=== PATIENT | male | born 1995 | race Caucasian/White ===

== ENCOUNTER 2016-07-02 22:13 | Emergency (ER) | payer OTHER ==
[~2016-07-02] VITALS: Ht 172.7 cm; Wt 48.9 kg
[2016-07-02 22:19] VITALS: Ht 172.7 cm; Wt 48.9 kg
[2016-07-02] MEDS ORDERED: ACETAMINOPHEN 500 MG TAB PO STA (22:25)
[2016-07-02] MEDS ORDERED: IBUPROFEN 600 MG TAB PO STA (22:38)
[2016-07-02] MEDS ORDERED: LORA-554 PO (22:49)
[2016-07-03 00:07] VITALS: BP 110/55; PULSE 109; TEMP 37.4; O2SAT 99
--- NOTE | 2016-07-03 05:11 | EMERGENCY ROOM VISIT NOTE ---
History First contact with patient: 22:25 Chief Complaint: FEVER Stated Complaint: FEVER,FATIGUE,BODY ACHE,COUGHING History of Present Illness The patient is a 21 year old male who presents to the Emergency Room with complaints of Fever, chills, myalgias, arthralgias for the past day. Patient denies chest pain, dyspnea, abdominal pain, neck stiffness, sore throat, abdominal pain, vomiting, diarrhea. He is tolerating by mouth fluids but has a decreased appetite. No flu shot. No cold medicines today. Review of Systems See HPI for pertinent positives & negatives. A total of 10 systems reviewed and were otherwise negative. Past Medical/Surgical History None Social History Smoking Status: Current Every Day Smoker Alcohol Use: none Drug Use: none Marital Status: single Occupation Status: [employer] student Current/Historical Medications Scheduled PRN Loratadine (Allergy Relief), 10 MG PO DAILY PRN for ALLERGIC REACTION Allergies Coded Allergies: No Known Allergies (Unverified , 07/02/16) Physical Exam Vital Signs Date Time Temp Pulse Resp B/P Pulse Ox O2 Delivery O2 Flow Rate FiO2 07/03/16 00:07 37.4 109 20 110/55 99 07/02/16 22:19 39.0 147 18 121/66 96 Room Air Pain Rating (0-10): 0 Physical Exam VITALS: Vitals are noted on the nurse's note and reviewed by myself. Vital signs febrile GENERAL: Pleasant male, in no acute distress, nondiaphoretic, well-developed well-nourished. SKIN: The skin was without rashes, erythema, edema, or bruising. There is no tenting of the skin. Capillary reflex less than 2 seconds. HEAD: Normocephalic atraumatic. EARS: External auditory canals clear, tympanic membranes pearly shabazz without erythema or effusion bilaterally. EYES: Pupils equal round and reactive to light and accommodation. Conjunctivae without injection, sclerae without icterus. Extraocular movements intact. NOSE: Patent, turbinates without inflammation or discharge. No sinus tenderness. MOUTH: Mucous membranes mildly dry Pharynx without erythema or exudate. Uvula midline. Airway patent. Tongue does not deviate. NECK: Supple without nuchal rigidity. No lymphadenopathy. No thyromegaly. Cervical spine is nontender. No JVD. No meningeal signs HEART: Regular rate and rhythm without murmurs gallops or rubs. LUNGS: Clear to auscultation bilaterally without wheezes, rales or rhonchi. No dullness to percussion. No retractions or accessory muscle use. ABDOMEN: Positive bowel sounds x 4. Normal tympanic percussion. Soft, nontender, without masses or organomegaly. Sanchez sign negative. No guarding or rebound tenderness. MUSCULOSKELETAL: No muscle atrophy, erythema, or edema noted. NEURO: Patient was alert and oriented to person place and time. Normal sensation to light and sharp touch. No focal neurological deficits. Medical Decision & Procedures Laboratory Results Test 07/02/16 22:32 Influenza Type A Antigen Neg for Influ A (NEG) Influenza Type B Antigen Neg for Influ B (NEG) Medications Administered Medications (Trade) Dose Ordered Sig/Johnny Route Start Time Stop Time Status Last Admin Dose Admin Acetaminophen (Tylenol Tab) 1,000 mg NOW STAT PO 07/02/16 22:25 07/02/16 22:27 DC 07/02/16 22:35 1,000 MG Ibuprofen (Motrin Tab) 600 mg NOW STAT PO 07/02/16 22:38 07/02/16 22:39 DC 07/02/16 22:54 600 MG ED Course Prior records/ancillary studies reviewed. Triage Nursing notes reviewed. The patient's history was concerning for fever. Differential diagnosis: Etiologies such as viral syndrome, otitis, pharyngitis, pneumonia, influenza, meningitis, urinary tract infection, sepsis, bacteremia, as well as others were entertained. Physical examination: Patient was alert, interactive with no meningeal signs ER treatment provided: Tylenol, Motrin, fluids On reassessment the patient felt better. Diagnostics interpreted by me: The labs revealed negative influenza This appears to be consistent with influenza. This could be a false negative. Patient exam and history seems consistent with influenza. Patient no signs of meningitis. He was well-appearing. He felt much better to be medicated as above. He was advised to take all medicines as directed and to follow-up health services in a few days here in the ER sooner for high fevers, neck stiffness, vomiting, worsening signs or symptoms or as needed. By the evaluation outlined above emergent etiologies such as otitis, pharyngitis, pneumonia, meningitis, urinary tract infection, sepsis, bacteremia, as well as others were deemed relatively unlikely. The pt informed about the findings as listed above. All questions were answered and pleased with the treatment. Return instructions were outlined and the patient was discharged in stable condition. Referral: The patient was referred back to their primary care physician for follow-up in 2 to 3 days for a recheck of the current condition. Medical Decision As above Impression Primary Impression: Influenza Departure Information Dispostion Home / Self-Care Condition GOOD Forms HOME CARE DOCUMENTATION FORM, School Instructions, Return To School: 3 days IMPORTANT VISIT INFORMATION Patient Instructions Fever - [facility], [facility] Additional Instructions Acetaminophen(Tylenol) may be used for fever or pain. Use 1000mg every six hours as needed. Avoid using more than 3000mg in a 24 hour period. (AND/OR) Ibuprofen(Motrin, Advil) may be used for fever or pain. Use 600mg every six hours as needed. Take with food. Avoid using more than 2400mg in a 24 hour period. Do not use 2400mg per day for more than three consecutive days without physician direction. Prolonged inappropriate use can lead to stomach upset or ulcers. Afrin nasal spray: 2-3 sprays to each nostril twice daily as needed for congestion. Do not use for more than 3-4 days because it can lead to worsening rebound congestion. Pseudoephedrine(Sudaphed): 30-60mg every 6 hours as needed for nasal congestion. Do not take this with other stimulant products or supplements. Rest and drink plenty of fluids. Controlling your fever with Tylenol and Ibuprofen as above will make you feel better. Wash your hands after nose blowing, sneezing, or coughing. Most germs are spread through contact, therefore improper hygiene may result in your close contacts and loved ones becoming ill just like you. Continue current medications. Return to the ER for severe headache, neck stiffness, chest pain, difficulty breathing, fevers, vomiting, worsening of your condition, or as needed. Follow up with your primary physician this week for a recheck of your current condition. School Instructions Return To School: 3 days
== END 2016-07-03 00:09 | disposition home or self-care (01) ==
LOC: C.EDB 22:15 → C.EDC 07-03 00:09
DX: J11.1 Influenza due to unidentified influenza virus with other respiratory manifestations (principal); F17.200 Nicotine dependence, unspecified, uncomplicated

== ENCOUNTER → 2016-07-09 | Outpatient (CLI) | payer OTHER ==
[~2016-07-09] MED LIST: LORA-554 PO
[2016-07-09 13:44] LABS: HEMATOCRIT 40.1 % (42-52); MEAN CELL VOLUME 86.2 fL (80-100); MEAN CORPUSCULAR HEMOGLOBIN 29.9 pg (25-34); MEAN CORPUSCULAR HGB CONC 34.7 g/dl (32-36); MEAN PLATELET VOLUME 10.2 fL (7.4-10.4); PLATELET COUNT 164 K/uL (130-400); RED BLOOD COUNT 4.65 M/uL (4.7-6.1); WHITE BLOOD COUNT 3.69 K/uL (4.8-10.8)
[2016-07-09 13:59] LABS: ALT/SGPT 145 U/L (12-78); AST/SGOT 65 U/L (15-37); BLOOD UREA NITROGEN 8 mg/dl (7-18); BUN/CREATININE RATIO 11.7 (10-20); CALCIUM 8.9 mg/dl (8.5-10.1); CARBON DIOXIDE 27 mmol/L (21-32); CHLORIDE 104 mmol/L (98-107); CREATININE 0.69 mg/dl (0.60-1.40); GLUCOSE 84 mg/dl (70-99); POTASSIUM 3.8 mmol/L (3.5-5.1); SODIUM 141 mmol/L (136-145)
[2016-07-09 14:01] LABS: ALB/GLOB RATIO 1.3 (0.9-2); ALKALINE PHOSPHATASE 78 U/L (45-117)
== END | disposition home or self-care (01) ==
LOC: C.LAB1850 11:53
PROVIDERS: ATTEND Internal Medicine
DX: R11.2 Nausea with vomiting, unspecified (principal); R53.83 Other fatigue

== ENCOUNTER → 2016-07-29 | Outpatient (CLI) | payer OTHER ==
[2016-07-29 12:41] LABS: FERRITIN 63.1 ng/ml (8.0-388.0)
== END | disposition home or self-care (01) ==
LOC: C.LAB1850 10:56
PROVIDERS: ATTEND Internal Medicine
DX: D64.9 Anemia, unspecified (principal); R74.8 Abnormal levels of other serum enzymes